=== PATIENT | female | born 1940 | race Caucasian/White ===

== ENCOUNTER 2020-06-24 13:34 | Observation (INO) ==
[2020-06-24] MEDS ORDERED: CeFAZolin Syr 2,000MG/20 ML 2,000 MG/20 ML SYRINGE IVPB ONE (14:23)
[2020-06-24] MEDS ORDERED: Ringers Solution, Lactated 1,000 ML IVC SCH (14:30)
[2020-06-24] MEDS ORDERED: Acetaminophen IV 1,000 MG/100 ML BAG IVPB ONE (15:05)
[2020-06-24] MEDS ORDERED: Famotidine 20 MG/2 ML VIAL IVP ONE (15:05)
[2020-06-24] MEDS ORDERED: Ondansetron 4 MG/2 ML VIAL ONE (16:24)
[2020-06-24] MEDS ORDERED: Lidocaine -MPF 2% 2 ML VIAL ONE (16:24)
[2020-06-24] MEDS ORDERED: *HR* FentaNYL (PF) 100 MCG/2 ML VIAL ONE (16:24)
[2020-06-24] MEDS ORDERED: *HR* Midazolam HCl 2 MG/2 ML VIAL ONE (16:25)
[2020-06-24] MEDS ORDERED: *HR* Propofol 200 MG/20 ML VIAL IVP ONE (16:25)
[2020-06-24] MEDS ORDERED: Lidocaine/EPI 1:100k 1% 50 ML VIAL ONE (16:44)
[2020-06-24] MEDS ORDERED: *HR* OxyCODONE Immed Rel 5 MG TABLET PO PRN (16:51)
[2020-06-24] MEDS ORDERED: Ondansetron 4 MG/2 ML VIAL IVP PRN ×2 (16:51→22:25)
[2020-06-24] MEDS ORDERED: Acetaminophen 325 MG TABLET PO PRN (22:25)
[2020-06-24] MEDS ORDERED: Naloxone 0.4 MG/ML INJ IVP PRN (22:25)
[2020-06-24 22:53] LABS: Basophils % 0.2 %; Hematocrit 36.5 % (35.3-44.9); Hemoglobin 12.2 g/dL (11.5-15.4); Immature Granulocytes % 0.2 % (0-4); Lymphocytes # 0.4 K/mcL (0.6-4.6); Lymphocytes % 8.6 %; Mean Corpuscular HGB Conc 33.4 g/dL (31.6-35.5); Mean Corpuscular Hemoglobin 31.6 pg (28.0-33.3); Mean Corpuscular Volume 94.6 fL (83.0-100.0); Mean Platelet Volume 9.8 fL (9.4-12.4); Monocytes # 0.1 K/mcL (0.0-1.3); Monocytes % 1.5 %; Neutrophils # 4.2 K/mcL (1.6-8.9); Platelet Count 234 K/mcL (140-400); Red Blood Count 3.86 M/mcL (3.82-4.97); Segmented Neutrophils % 89.5 %; White Blood Count 4.7 K/mcL (4.3-11.1)
[2020-06-24 23:04] LABS: INR 1.1; Prothrombin Time 13.1 Seconds (9.4-12.1)
[2020-06-24 23:07] LABS: Activated Partial Thrombo Time 29.9 Seconds (26.0-36.0)
[2020-06-24 23:15] LABS: Alanine Aminotransferase 13 Units/L (7-52); Albumin 3.3 g/dL (3.5-5.7); Albumin/Globulin Ratio 1.2 (1.1-2.2); Alkaline Phosphatase 66 Units/L (34-104); Aspartate Amino Transferase 14 Units/L (13-39); BUN/Creatinine Ratio 18 (6-26); Bilirubin,Total 0.3 mg/dL (0.3-1.0); Blood Urea Nitrogen 15 mg/dL (8-23); Calcium 8.7 mg/dL (8.6-10.3); Carbon Dioxide 23 mEq/L (23-29); Chloride 100 mEq/L (98-107); Globulin 2.8 g/dL (2.4-3.5); Glucose 157 mg/dL (70-105); Magnesium 1.6 mg/dL (1.6-2.6); Osmolality,Calculated 278 (280-300); Sodium 132 mEq/L (136-145); Total Protein 6.1 g/dL (6.4-8.9); Troponin I < 0.03 ng/mL (< 0.04); eGFR For African Americans > 60 (> 60); eGFR For Non-African Americans > 60 (> 60)
[2020-06-24] MEDS ORDERED: 0.9 % Sodium Chloride 1,000 ML IVC SCH (23:30)
[2020-06-25 00:06] LABS: Thyroid Stimulating Hormone 1.704 mcIU/mL (0.340-5.600)
[2020-06-25 00:24] LABS: Estimated Average Glucose 117 mg/dl; Hemoglobin A1C 5.7 %
[2020-06-25 06:34] VITALS: BP 150/76
[2020-06-25] MEDS ORDERED: Cholecalciferol (D-3) 1,000 UNIT (25MCG) TABLET PO SCH (09:00)
[2020-06-25] MEDS ORDERED: Famotidine 20 MG/2 ML VIAL IVP SCH (09:00)
== END 2020-06-25 11:13 | disposition home or self-care (01) ==
LOC: SAMDAY 13:34 → 3NENU 13:34
PROVIDERS: ADMIT Internal Medicine; ATTEND Internal Medicine